=== PATIENT | male | born 1940 | race Caucasian/White ===

== ENCOUNTER 2017-10-07 13:08 | Outpatient (CLI) | payer MEDICARE, OTHER ==
--- NOTE | 2017-10-07 13:37 | RAD ---
CHEST TWO VIEWS: History: Dyspnea. Comparison: 02-07-16 FINDINGS: Cardiac silhouette and pulmonary vasculature are unremarkable. Mediastinum is midline with aortic gege cification, dual-lead left subclavian cardiac electronic device and hiatal hernia. Pulmonary vasculat ure is unremarkable. There is no confluent airspace consolidation, pneumothorax, or pleural fluid vivian arent. Nipple shadows overlie the lung bases. IMPRESSION: 1. Hiatal hernia. Chronic type findings are stable. POS: JANESSA
== END 2017-10-07 13:09 | disposition home or self-care (01) ==
LOC: RAD 13:08
PROVIDERS: ATTEND Internal Medicine Critical Care Medicine
DX: R06.00 Dyspnea, unspecified (principal); K44.9 Diaphragmatic hernia without obstruction or gangrene
CPT/HCPCS: 71046

== ENCOUNTER 2018-04-06 12:39 | Outpatient (CLI) | payer MEDICARE, OTHER ==
--- NOTE | 2018-04-06 14:48 | RAD ---
PA AND LATERAL OF THE CHEST: INDICATION: History of dyspnea. COMPARISON: Prior exam dated 10/07/2017. FINDINGS: The chronic lung changes are largely stable. Hiatal hernia is again noted. Mild cardiomegaly is sta ble. AICD is unchanged. Multilevel spondylosis thoracic spine is similar-appearing. IMPRESSION: 1. No acute cardiopulmonary abnormality. 2. Stable moderate-sized hiatal hernia. 3. Stable mild cardiomegaly. POS: SHIVAM
== END 2018-04-06 12:40 | disposition home or self-care (01) ==
LOC: RAD 12:39
PROVIDERS: ATTEND Internal Medicine Critical Care Medicine
DX: R06.00 Dyspnea, unspecified (principal); I51.7 Cardiomegaly; K44.9 Diaphragmatic hernia without obstruction or gangrene
CPT/HCPCS: 71046